=== PATIENT | female | born 1940 | race Caucasian/White ===

== ENCOUNTER 2017-12-19 16:54 | Emergency (ER) | payer MEDICARE ==
[~2017-12-19] VITALS: Ht 172.7 cm; Wt 68.2 kg
[~2017-12-19 16:54] MED LIST: ALPRAZOLAM 0.0.25 M1 PO; ARTIFICIAL TEA1 EACH OPHTHALMIC; BACTRIM DS TAB1 EACH PO; CALCIUM ANTACI400 MG PO; CLARITIN10 MG PO; CRANBERRY500 M3 PO; HYDROCODON-ACE1 EAC5 PO; LYRICA 50 MG50 MG PO; MILK OF MA2400 MG/10 PO; MIRALAX255 GM PO; NAPROSYN500 MG PO; SEROQUEL 25 MG25 M1 PO; TYLENOL325 MG PO
[2017-12-19 17:45] LABS: ABSOLUTE BASOPHILS 0.1 thou/uL (0.0-0.2); ABSOLUTE EOSINOPHILS 0.1 thou/uL (0.0-0.7); ABSOLUTE LYMPHOCYTES 2.2 thou/uL (0.8-5.3); ABSOLUTE MONOCYTES 0.8 thou/uL (0.0-1.2); ABSOLUTE NEUTROPHILS 5.7 thou/uL (1.6-8.1); BASOPHILS 0.6 %; EOSINOPHILS 1.6 %; HEMATOCRIT 34.1 % (37.0-47.0); HEMOGLOBIN 11.4 gm/dL (12.0-15.0); LYMPHOCYTES 24.7 %; MCHC 33.4 g/dL (28.0-37.0); MONOCYTES 9.3 %; MPV 7.3 fl. (7.2-11.1); NUCLEATED RBCS 0 /100WBC; PLATELET COUNT* 298 thou/uL (150-400); POLYS 63.8 %; RBC 3.92 mil/uL (4.20-5.00); RDW-CV 16.5 % (10.5-14.5)
[2017-12-19 17:52] LABS: ANION GAP 8 mmol/L (7-16); BUN 15 mg/dL (7-18); CALCIUM 8.5 mg/dL (8.5-10.1); CHLORIDE 101 mmol/L (98-107); CO2 31 mmol/L (21-32); CREATININE 0.7 mg/dL (0.6-1.3); GLUCOSE 107 mg/dL (70-99); POTASSIUM 3.5 mmol/L (3.5-5.1); SODIUM 140 mmol/L (136-145)
[2017-12-19 17:59] LABS: ALBUMIN 3.2 g/dL (3.4-5.0); ALKALINE PHOSPHATASE 104 U/L (46-116); SGOT 38 U/L (15-37); SGPT 50 U/L (30-65); TOTAL BILIRUBIN 0.3 mg/dL (<0.1-1.0); TROPONIN-I LEVEL <0.06 ng/mL (<0.06)
[2017-12-19 18:43] LABS: URINE CLARITY ND; URINE COLOR ND
[2017-12-19 18:44] LABS: URINE GLUCOSE-RANDOM ND (Negative); URINE PROTEIN ND (Negative); URINE SPECIFIC GRAVITY ND (1.005-1.030)
[2017-12-19 18:45] LABS: URINE BILIRUBIN ND (Negative); URINE BLOOD ND (Negative); URINE KETONES ND (Negative); URINE NITRITE ND (Negative)
[2017-12-19 18:46] LABS: SQUAMOUS ND /LPF (0-3); URINE LEUKOCYTES ND (Negative); URINE UROBILINOGEN ND E.U./dl (0.2-1.0); URINE WBC ND /HPF (0-5)
[2017-12-19 18:47] LABS: BACTERIA ND /HPF (None Seen); CASTS ND /LPF (None Seen); MUCUS ND strn/LPF (None Seen); URINE RBC ND /HPF (0-2)
[2017-12-19 18:48] LABS: CRYSTALS ND /LPF (None Seen)
[2017-12-19 19:08] LABS: URINE BILIRUBIN ND (Negative); URINE BLOOD ND (Negative); URINE CLARITY ND; URINE COLOR ND; URINE GLUCOSE-RANDOM ND (Negative); URINE KETONES ND (Negative); URINE NITRITE ND (Negative); URINE PROTEIN ND (Negative); URINE SPECIFIC GRAVITY ND (1.005-1.030); URINE UROBILINOGEN ND E.U./dl (0.2-1.0)
[2017-12-19 19:10] LABS: CASTS None Seen /LPF (None Seen); MUCUS 4-6 Moderate strn/LPF (None Seen); SQUAMOUS 0-3 Few /LPF (0-3); URINE RBC 0-2 Rare /HPF (0-2); URINE WBC 0-5 Rare /HPF (0-5)
[2017-12-19 19:12] LABS: AMORPHOUS URATES Few /LPF (None Seen); BACTERIA 1-9 Few /HPF (None Seen)
[2017-12-19 19:13] LABS: URINE LEUKOCYTES ND (Negative)
[2017-12-19] MEDS ORDERED: KEFLEX500 M1 PO (19:35)
[2017-12-19 19:59] VITALS: BP 134/89
--- NOTE | 2017-12-20 11:20 | EKG ---
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 DESAI : 1940 Requested By: Emely Rizzo Order Number: [id number] MD: Mitchel Singh Measurements Intervals [place] Rate: 72 P: -21 OK: 200 QRS: -14 QRSD: 86 T: 31 QT: 423 QTc: 463 Interpretive Statements Sinus rhythm Low voltage, precordial leads Abnormal R-wave progression, early transition No previous ECG available for comparison Electronically Signed On 12-20-2017 11:20:02 CDT by Mitchel Singh [email or web address] <ELECTRONICALLY SIGNED> By: Mitchel Singh MD, [facility] 12/20/17 1120 [id number] 175 Mitchel Singh MD, FACC /EPI
== END 2017-12-19 20:00 | disposition home or self-care (01) ==
LOC: M.ERS 16:54
PROVIDERS: Nurse Practitioner Family
DX: N39.0 Urinary tract infection, site not specified (principal); F03.90 Unspecified dementia, unspecified severity, without behavioral disturbance, psychotic disturbance, mood disturbance, and anxiety; Z88.8 Allergy status to other drugs, medicaments and biological substances; Z90.710 Acquired absence of both cervix and uterus; Z96.649 Presence of unspecified artificial hip joint; W22.8XXA Striking against or struck by other objects, initial encounter; Y93.89 Activity, other specified; Y92.128 Other place in nursing home as the place of occurrence of the external cause; Y99.8 Other external cause status